=== PATIENT | male | born 1985 | race Caucasian/White ===

== ENCOUNTER 2016-07-29 11:20 | Inpatient (IN) | payer BC, OTHER ==
[~2016-07-29] VITALS: Ht 182.9 cm; Wt 74.8 kg
[~2016-07-29 11:20] MED LIST: ARIP5TAB10 PO; BUPR300T52 PO; FINA1TAB PO; LISD30CA2 PO; TOPI25TA PO; TRAZ-147 PO
[2016-07-30 13:15] VITALS: BP 118/72
[2016-07-30] MEDS ORDERED: DICYCLOMINE HCL 20 MG TABLET PO PRN (13:30)
[2016-07-30] MEDS ORDERED: MIRALAX 17 GM POWD.PACK PO PRN (13:30)
[2016-07-30] MEDS ORDERED: LOPERAMIDE HCL 2 MG CAPSULE PO PRN ×2 (13:30)
[2016-07-30] MEDS ORDERED: LORAZEPAM 1 MG TABLET PO PRN ×2 (13:30)
[2016-07-30] MEDS ORDERED: IBUPROFEN 600 MG TABLET PO PRN (13:30)
[2016-07-30] MEDS ORDERED: HYDROXYZINE PAMOATE 25 MG CAPSULE PO PRN (13:30)
[2016-07-30] MEDS ORDERED: MAG HYDROX/AL HYDROX/SIMETH 30 ML LIQUID UDC PO PRN (13:30)
[2016-07-30] MEDS ORDERED: ONDANSETRON ODT 4 MG TAB.RAPDIS SL PRN (13:30)
[2016-07-30] MEDS ORDERED: diphenhydrAMINE 50 MG CAPSULE PO PRN (13:30)
[2016-07-30] MEDS ORDERED: THIAMINE HCL 200 MG/2 ML VIAL IM ONE (13:30)
[2016-07-30] MEDS ORDERED: LORAZEPAM 2 MG/1 ML VIAL IM PRN (13:30)
[2016-07-30] MEDS ORDERED: BUPRENORPHINE HCL 2 MG TAB.SUBL SL PRN (13:30)
[2016-07-30] MEDS ORDERED: ACETAMINOPHEN 325 MG TABLET PO PRN (13:30)
[2016-07-30] MEDS ORDERED: ONDANSETRON 4 MG/2 ML VIAL IM PRN (13:30)
[2016-07-30] MEDS ORDERED: MAGNESIUM HYDROXIDE 30 ML LIQUID UDC PO PRN (13:30)
[2016-07-30 14:58] LABS: BASOPHILS % (AUTO) 0.2 % (0.0-2.0); EOSINOPHILS # (AUTO) 0.3 K/uL (0.0-0.7); HEMATOCRIT 45.7 % (40-50); HEMOGLOBIN 15.1 G/DL (14.0-18.0); LYMPHOCYTES # (AUTO) 1.4 K/UL (0.8-4.8); LYMPHOCYTES % (AUTO) 13.4 % (20.5-51.5); MEAN CORPUSCULAR HGB CONC 33 g/dL (32.0-37.0); MEAN CORPUSCULAR VOLUME 90.4 FL (82.0-92.0); MONOCYTES # (AUTO) 0.7 K/UL (0.1-1.30); MONOCYTES % (AUTO) 7.1 % (0.0-11.0); NEUTROPHILS # (AUTO) 7.8 K/UL (1.8-8.9); NEUTROPHILS % (AUTO) 76.3 % (38.5-71.5); PLATELET COUNT (AUTO) 370 K/UL (150-450); RED BLOOD CELL COUNT(AUTO) 5.05 MIL/UL (4.7-6.1); WHITE BLOOD COUNT (AUTO) 10.1 K/UL (4.0-11.2)
[2016-07-30 15:03] LABS: ETHANOL < 3 MG/DL (0-0)
[2016-07-30 15:05] LABS: ALANINE AMINOTRANSFERASE 17 U/L (16-63); ALKALINE PHOSPHATASE 69 U/L (50-136); ASPARTATE AMINOTRANSFERASE 18 U/L (15-37); BILIRUBIN,TOTAL 0.5 mg/dL (0.2-1.0); CARBON DIOXIDE 31 mmol/L (21-32); CHLORIDE 99 mmol/L (98-107); CREATININE 1.1 mg/dL (0.6-1.3); GLUCOSE 104 mg/dL (74-106); POTASSIUM 3.7 mmol/L (3.5-5.1); UREA NITROGEN, BLOOD 8 mg/dL (7-18)
[2016-07-30 15:30] LABS: THYROID STIMULATING HORMONE 0.321 mIU/mL (0.358-3.740)
[2016-07-30 16:30] VITALS: BP 120/62
[2016-07-30 20:00] VITALS: BP 127/73
[2016-07-30] MEDS: SULFAMETH/TRIMETH 800/160 MG TABLET PO SCH (20:26)
[2016-07-30] MEDS: CLONIDINE HCL 0.1 MG TABLET PO PRN (20:27)
[2016-07-31] VITALS: BP 106/55
[2016-07-31] MEDS: METHOCARBAMOL 750 MG TABLET PO PRN ×2 (00:30→12:46)
[2016-07-31 04:00] VITALS: BP 90/54
[2016-07-31] MEDS ORDERED: 5 DAY TAPER BUPRENORPHINE -SERENITY PROTOCOL SL PRN (06:00)
[2016-07-31 08:06] LABS: HEPATITIS B SURFACE AG Negative (Negative)
[2016-07-31 08:43] VITALS: BP 91/56
[2016-07-31] MEDS: BUPRENORPHINE HCL 2 MG TAB.SUBL SL SCH ×4 (09:00→22:08)
[2016-07-31] MEDS ORDERED: TUBERCULIN,PURIF.PROT.DERIV. 5 TU/0.1 ML TEST ID ONE (09:00)
[2016-07-31] MEDS ORDERED: 5 DAY TAPER OF LORAZEPAM -SERENITY PROTOCOL PO PRN (09:00)
[2016-07-31] MEDS: LORAZEPAM 1 MG TABLET PO SCH ×4 (09:00→22:08)
[2016-07-31] MEDS: THIAMINE HCL 100 MG TABLET PO SCH (09:25)
[2016-07-31] MEDS: SULFAMETH/TRIMETH 800/160 MG TABLET PO SCH ×2 (09:25→22:08)
[2016-07-31] MEDS: MULTIVITAMINS,THERAPEUTIC TABLET PO SCH (09:25)
[2016-07-31] MEDS: CLONIDINE HCL 0.1 MG TABLET PO PRN (09:25)
[2016-07-31] MEDS: FOLIC ACID 1 MG TABLET PO SCH (09:25)
[2016-07-31 12:52] VITALS: BP 103/57
[2016-07-31] MEDS: ARIPIPRAZOLE 5 MG TABLET PO SCH (13:30)
[2016-07-31] MEDS: TOPIRAMATE 25 MG TABLET PO SCH ×2 (13:30→16:14)
[2016-07-31] MEDS: buPROPion XL 150 MG TAB.SR.24H PO SCH (14:03)
[2016-07-31] MEDS ORDERED: LORAZEPAM 1 MG TABLET PO PRN ×2 (14:15)
[2016-07-31] MEDS ORDERED: BUPRENORPHINE HCL 2 MG TAB.SUBL SL PRN (14:15)
[2016-07-31 16:14] VITALS: BP 106/63
[2016-07-31 16:25] LABS: *AMPHETAMINE, URINE NEGATIVE (NEGATIVE); *BARBITURATE, URINE NEGATIVE (NEGATIVE); *CANNABINOID, URINE POSITIVE (NEGATIVE); *COCCAINE, URINE POSITIVE (NEGATIVE); *OPIATE, URINE POSITIVE (NEGATIVE); *PHENCYCLIDINE SCREEN,URINE NEGATIVE (NEGATIVE)
[2016-07-31 20:00] VITALS: BP 96/64
[2016-07-31] MEDS: TRAZODONE 100 MG TABLET PO SCH (22:08)
[2016-08-01] VITALS (7 sets, daily range): BP systolic 89–117; BP diastolic 53–63
[2016-08-01] MEDS: TOPIRAMATE 25 MG TABLET PO SCH ×2 (09:00→16:18)
[2016-08-01] MEDS: ARIPIPRAZOLE 5 MG TABLET PO SCH (09:00)
[2016-08-01] MEDS: THIAMINE HCL 100 MG TABLET PO SCH (09:31)
[2016-08-01] MEDS: buPROPion XL 150 MG TAB.SR.24H PO SCH (09:31)
[2016-08-01] MEDS: BUPRENORPHINE HCL 2 MG TAB.SUBL SL SCH ×3 (09:31→20:52)
[2016-08-01] MEDS: FOLIC ACID 1 MG TABLET PO SCH (09:31)
[2016-08-01] MEDS: LORAZEPAM 1 MG TABLET PO SCH ×3 (09:31→20:52)
[2016-08-01] MEDS: MULTIVITAMINS,THERAPEUTIC TABLET PO SCH (09:31)
[2016-08-01] MEDS: SULFAMETH/TRIMETH 800/160 MG TABLET PO SCH ×2 (09:31→20:52)
[2016-08-01] MEDS: TRAZODONE 100 MG TABLET PO SCH (20:52)
[2016-08-02] VITALS: BP 101/59
[2016-08-02 04:00] VITALS: BP 102/59
[2016-08-02 08:00] VITALS: BP 102/65
[2016-08-02] MEDS ORDERED: FINASTERIDE PO SCH (09:00)
[2016-08-02] MEDS ORDERED: BUPRENORPHINE HCL 2 MG TAB.SUBL SL SCH (09:00)
[2016-08-02] MEDS: TOPIRAMATE 25 MG TABLET PO SCH ×2 (09:00→16:27)
[2016-08-02] MEDS: ARIPIPRAZOLE 5 MG TABLET PO SCH (09:00)
[2016-08-02] MEDS: MULTIVITAMINS,THERAPEUTIC TABLET PO SCH (09:49)
[2016-08-02] MEDS: buPROPion XL 150 MG TAB.SR.24H PO SCH (09:50)
[2016-08-02] MEDS: LORAZEPAM 1 MG TABLET PO SCH ×4 (09:50→21:02)
[2016-08-02] MEDS: THIAMINE HCL 100 MG TABLET PO SCH (09:52)
[2016-08-02] MEDS: SULFAMETH/TRIMETH 800/160 MG TABLET PO SCH ×2 (09:52→21:02)
[2016-08-02] MEDS: FOLIC ACID 1 MG TABLET PO SCH (09:54)
[2016-08-02 12:00] VITALS: BP 117/76
[2016-08-02] MEDS: BUPRENORPHINE HCL 2 MG TAB.SUBL SL SCH ×2 (15:45→21:02)
[2016-08-02 16:00] VITALS: BP 93/60
[2016-08-02 20:00] VITALS: BP 93/68
[2016-08-02] MEDS: TRAZODONE 100 MG TABLET PO SCH (21:02)
[2016-08-03 04:00] VITALS: BP 115/63
[2016-08-03 08:00] VITALS: BP 114/64
[2016-08-03] MEDS: ARIPIPRAZOLE 5 MG TABLET PO SCH (09:00)
[2016-08-03] MEDS: TOPIRAMATE 25 MG TABLET PO SCH ×2 (09:00→15:00)
[2016-08-03] MEDS: THIAMINE HCL 100 MG TABLET PO SCH (09:27)
[2016-08-03] MEDS: SULFAMETH/TRIMETH 800/160 MG TABLET PO SCH ×2 (09:27→21:13)
[2016-08-03] MEDS: MULTIVITAMINS,THERAPEUTIC TABLET PO SCH (09:28)
[2016-08-03] MEDS: FOLIC ACID 1 MG TABLET PO SCH (09:28)
[2016-08-03] MEDS: LORAZEPAM 1 MG TABLET PO SCH ×3 (09:29→20:31)
[2016-08-03] MEDS: BUPRENORPHINE HCL 2 MG TAB.SUBL SL SCH ×3 (09:29→20:31)
[2016-08-03] MEDS: buPROPion XL 150 MG TAB.SR.24H PO SCH (09:30)
[2016-08-03 12:00] VITALS: BP 116/80
[2016-08-03 16:00] VITALS: BP 102/56
[2016-08-03 20:00] VITALS: BP 107/61
[2016-08-03] MEDS: TRAZODONE 100 MG TABLET PO SCH (20:31)
[2016-08-04] VITALS: BP 105/65
[2016-08-04 04:00] VITALS: BP 104/52
[2016-08-04 08:00] VITALS: BP 112/65
[2016-08-04] MEDS: FOLIC ACID 1 MG TABLET PO SCH (08:45)
[2016-08-04] MEDS: MULTIVITAMINS,THERAPEUTIC TABLET PO SCH (08:45)
[2016-08-04] MEDS: THIAMINE HCL 100 MG TABLET PO SCH (08:45)
[2016-08-04] MEDS: buPROPion XL 150 MG TAB.SR.24H PO SCH (08:45)
[2016-08-04] MEDS: LORAZEPAM 1 MG TABLET PO SCH ×2 (08:46→20:56)
[2016-08-04] MEDS: SULFAMETH/TRIMETH 800/160 MG TABLET PO SCH ×2 (08:46→20:56)
[2016-08-04] MEDS: ARIPIPRAZOLE 5 MG TABLET PO SCH (08:47)
[2016-08-04] MEDS: TOPIRAMATE 25 MG TABLET PO SCH ×2 (08:47→16:10)
[2016-08-04] MEDS ORDERED: BUPRENORPHINE HCL 2 MG TAB.SUBL SL SCH (09:00)
[2016-08-04 12:00] VITALS: BP 112/71
[2016-08-04 16:00] VITALS: BP 105/51
[2016-08-04 20:00] VITALS: BP 110/66
[2016-08-04] MEDS: CLONIDINE HCL 0.1 MG TABLET PO PRN (20:56)
[2016-08-04] MEDS: TRAZODONE 100 MG TABLET PO SCH (20:56)
[2016-08-05] VITALS: BP 115/72
[2016-08-05 04:00] VITALS: BP 109/68
[2016-08-05 08:00] VITALS: BP 108/60
[2016-08-05] MEDS: SULFAMETH/TRIMETH 800/160 MG TABLET PO SCH ×2 (08:33→21:55)
[2016-08-05] MEDS: THIAMINE HCL 100 MG TABLET PO SCH (08:33)
[2016-08-05] MEDS: buPROPion XL 150 MG TAB.SR.24H PO SCH (08:33)
[2016-08-05] MEDS: FOLIC ACID 1 MG TABLET PO SCH (08:33)
[2016-08-05] MEDS: MULTIVITAMINS,THERAPEUTIC TABLET PO SCH (08:33)
[2016-08-05] MEDS: ARIPIPRAZOLE 5 MG TABLET PO SCH (08:34)
[2016-08-05] MEDS: TOPIRAMATE 25 MG TABLET PO SCH ×2 (08:34→16:18)
[2016-08-05 12:00] VITALS: BP 94/59
[2016-08-05 16:00] VITALS: BP 86/54
[2016-08-05 17:55] LABS: *AMPHETAMINE, URINE NEGATIVE (NEGATIVE); *BARBITURATE, URINE NEGATIVE (NEGATIVE); *CANNABINOID, URINE NEGATIVE (NEGATIVE); *COCCAINE, URINE POSITIVE (NEGATIVE); *OPIATE, URINE POSITIVE (NEGATIVE); *PHENCYCLIDINE SCREEN,URINE NEGATIVE (NEGATIVE)
[2016-08-05] MEDS ORDERED: METH-406 PO (18:54)
[2016-08-05] MEDS ORDERED: LACT1CAP72 PO (18:54)
[2016-08-05] MEDS ORDERED: DICY20TA28 PO (18:54)
[2016-08-05] MEDS ORDERED: CLON0.1T14 PO (18:54)
[2016-08-05] MEDS ORDERED: HYDR-3895 PO (18:54)
[2016-08-05 20:57] VITALS: BP 109/61
[2016-08-05] MEDS: TRAZODONE 100 MG TABLET PO SCH (21:55)
[2016-08-06 00:04] VITALS: BP 115/68
[2016-08-06 04:26] VITALS: BP 123/71
[2016-08-06 08:00] VITALS: BP 112/61
[2016-08-06] MEDS: buPROPion XL 150 MG TAB.SR.24H PO SCH (08:51)
[2016-08-06] MEDS: FOLIC ACID 1 MG TABLET PO SCH (08:51)
[2016-08-06] MEDS: MULTIVITAMINS,THERAPEUTIC TABLET PO SCH (08:51)
[2016-08-06] MEDS: THIAMINE HCL 100 MG TABLET PO SCH (08:51)
[2016-08-06] MEDS: ARIPIPRAZOLE 5 MG TABLET PO SCH (08:52)
[2016-08-06] MEDS: TOPIRAMATE 25 MG TABLET PO SCH ×2 (08:52→16:49)
[2016-08-06 12:00] VITALS: BP 110/59
[2016-08-06 16:00] VITALS: BP 110/61
[2016-08-06 20:14] VITALS: BP 125/71
== END 2016-08-06 20:50 | disposition other institution (70) | DRG 895 ==
LOC: SRC 07-30 12:57
PROVIDERS: ADMIT Internal Medicine; ATTEND Internal Medicine
PROC: HZ2ZZZZ Detoxification Services for Substance Abuse Treatment (ICD-10-PCS; principal; 2016-07-30)
PROC: HZ41ZZZ Group Counseling for Substance Abuse Treatment, Behavioral (ICD-10-PCS; 2016-08-04)
DX: F13.230 Sedative, hypnotic or anxiolytic dependence with withdrawal, uncomplicated (principal); L03.221 Cellulitis of neck; L02.11 Cutaneous abscess of neck; F11.23 Opioid dependence with withdrawal; S11.93XS Puncture wound without foreign body of unspecified part of neck, sequela; X78.8XXS Intentional self-harm by other sharp object, sequela; I80.8 Phlebitis and thrombophlebitis of other sites; F31.9 Bipolar disorder, unspecified; Z59.0 Homelessness; F17.210 Nicotine dependence, cigarettes, uncomplicated; Z79.899 Other long term (current) drug therapy; Z86.19 Personal history of other infectious and parasitic diseases
CPT/HCPCS: 36415; 70030-TC; 71010; 80307; 80346; 80349; 80353; 80361; 83735; 84443; 85025; 86580; 86592; 86705; 86803; 87040; 87340; 87806; A4663; G0480; J3411